=== PATIENT | male | born 1975 | race Caucasian/White ===

== ENCOUNTER 2021-12-26 10:50 | Outpatient (CLI) | payer OTHER ==
[~2021-12-26 10:50] MED LIST: METOPROLOL SUCC50 MG
== END 2021-12-26 11:00 | disposition home or self-care (01) ==
LOC: LAB 10:50
PROVIDERS: ATTEND Urology
DX: R97.20 Elevated prostate specific antigen [PSA] (principal)

== ENCOUNTER 2022-01-20 07:28 | Outpatient (CLI) | payer OTHER | END 2022-01-20 07:34 | disposition home or self-care (01) | LOC: SONOGRAMA 07:28 | PROVIDERS: ATTEND Urology | DX: R97.20 Elevated prostate specific antigen [PSA] (principal) ==

== ENCOUNTER → 2022-04-21 | Outpatient (CLI) | payer OTHER | END | disposition home or self-care (01) | LOC: NUCLEAR 04-07 06:00 | PROVIDERS: ATTEND Internal Medicine Cardiovascular Disease | DX: I11.9 Hypertensive heart disease without heart failure (principal) | CPT/HCPCS: 78452; 93017; A9500 ==

== ENCOUNTER 2023-11-19 21:16 | Emergency (ER) | payer OTHER ==
[~2023-11-19] VITALS: Ht 160 cm; Wt 67.1 kg
[2023-11-20 00:04] LABS: PH,URINE 5.5 (5.0-8.0); URINE APPEARANCE Clear; URINE BILIRRUBIN Negative (NEGATIVE); URINE BLOOD Negative; URINE COLOR Yellow; URINE GLUCOSE Negative (NEGATIVE); URINE LEUKOCYTE Negative; URINE NITRATE Negative; URINE PROTEIN Negative (NEGATIVE); URINE UROBILINOGEN 0.2 E.U./dl
[2023-11-20 00:08] LABS: URINE BACTERIA 7.5 uL (0.0-1933); URINE EPITHELIAL CELLS 1.5 uL (0.0-38.8); URINE RBC 2.1 uL (0.0-20.8); URINE WBC 3.2 uL (0.0-23.2)
[2023-11-20 00:22] LABS: HEMATOCRIT 41.9 % (39.0-48.0); HEMOGLOBIN 14.5 g/dL (13-16.00); MEAN CELL VOLUME 90.6 fL (80.0-100.00); MEAN CORPUSCULAR HEMOGLOBIN 31.3 pg (27.00-32.0); MEAN CORPUSCULAR HGB CONC 34.5 g/dl (32.0-36.0); PLATELET COUNT 254 K/uL (150-450); RED BLOOD COUNT 4.63 M/uL (4.00-6.00); RED CELL DISTRIBUTION WIDTH 12.9 % (11.5-14.5)
[2023-11-20 00:27] LABS: CREATININE SERUM 0.77 mg/dL (0.70-1.30); GFR 108.29; POTASSIUM 3.64 mEq/L (3.5-5.1)
== END 2023-11-20 04:09 | disposition home or self-care (01) ==
LOC: ER 21:17
PROVIDERS: General Practice
DX: K52.89 Other specified noninfective gastroenteritis and colitis (principal); Z91.013 Allergy to seafood; K30 Functional dyspepsia; Z20.822 Contact with and (suspected) exposure to COVID-19

== ENCOUNTER 2024-09-01 13:14 | Emergency (ER) | payer OTHER ==
[~2024-09-01] VITALS: Ht 157.5 cm; Wt 67.1 kg
[2024-09-01] MEDS ORDERED: VASOTEC20 MG PO (13:40)
[2024-09-01] MEDS ORDERED: HYDROCHLOROTH12.5 M2 PO (13:40)
[2024-09-01] MEDS ORDERED: 0.9 % SODIUM CHLORIDE 500 ML IV ONE (14:45)
[2024-09-01] MEDS ORDERED: ONDANSETRON HCL 2 MG/ML VIAL IV ONE (14:45)
[2024-09-01] MEDS ORDERED: FAMOTIDINE/PF 20 MG/2 ML VIAL IV ONE (14:45)
[2024-09-01] MEDS ORDERED: LABETALOL HCL 100 MG/20 ML ML IV ONE (14:45)
[2024-09-01 15:59] LABS: HEMATOCRIT 43.9 % (39.0-48.0); HEMOGLOBIN 15.4 g/dL (13-16.00); MEAN CELL VOLUME 92.5 fL (80.0-100.00); MEAN CORPUSCULAR HEMOGLOBIN 32.4 pg (27.00-32.0); PLATELET COUNT 368 K/uL (150-450); RED BLOOD COUNT 4.75 M/uL (4.00-6.00); RED CELL DISTRIBUTION WIDTH 13.1 % (11.5-14.5)
[2024-09-01 16:22] LABS: ALBUMIN 4.3 gm/dL (3.4-5.0); BILIRUBIN TOTAL 0.72 mg/dL (0.3-1.2); CALCIUM 9.6 mg/dL (8.5-10.1); CREATININE SERUM 0.91 mg/dL (0.70-1.30); GFR 89.3; POTASSIUM 4.2 mEq/L (3.5-5.1); TOTAL PROTEIN 8.3 gm/dL (6.4-8.2)
== END 2024-09-01 18:32 ==
LOC: ER 13:16
PROVIDERS: Nurse Practitioner Family
DX: I10 Essential (primary) hypertension (principal); Z91.013 Allergy to seafood

== ENCOUNTER 2025-09-08 07:51 | Emergency (ER) | payer OTHER ==
[~2025-09-08] VITALS: Ht 162.6 cm; Wt 66.7 kg
[~2025-09-08 07:51] MED LIST changes: +HYDROCHLOROTH12.5 M2 PO; +VASOTEC20 MG PO
[2025-09-08 08:07] VITALS: BP 137/80; O2SAT 96
[2025-09-08] MEDS ORDERED: ORPHENADRINE CITRATE 30 MG/ML AMPUL IM ONE (08:30)
[2025-09-08] MEDS ORDERED: ACETAMINOPHEN 500 MG GEL..CAP PO ONE ×2 (08:30→08:33)
[2025-09-08] MEDS ORDERED: DEXAMETHASONE SODIUM PHOSPHATE 4 MG/ML VIAL IM ONE (08:30)
[2025-09-08] MEDS ORDERED: DEXAMETHASONE SODIUM PHOSPHATE 4 MG/ML VIAL ONE (08:33)
[2025-09-08] MEDS ORDERED: ORPHENADRINE CITRATE 30 MG/ML AMPUL ONE (08:33)
[2025-09-08 08:57] LABS: BASO % 0.9 % (0.1-1.2); EOS # 0.05 (0.04-0.54); EOS % 0.9 % (0.7-7.0); LYMPH # 1.41 (1.18-3.74); LYMPH % 25.3 % (19.3-53.1); MEAN PLATELET VOLUME 8.90 fl (9.4-12.4); MONO # 0.49 (0.24-0.82); MONO % 8.8 % (4.7-12.5); NEUT # 3.54 (1.56-6.13); NEUT % 63.6 % (34.0-71.1); RED CELL DISTRIBUTION WIDTH 12.2 % (11.6-14.4)
[2025-09-08 09:20] LABS: ALT/SGPT 25.0 U/L (12-78); AST/SGOT 21.0 U/L (15-37); BILIRUBIN TOTAL 0.97 mg/dL (0.3-1.2); BUN CREA RATIO 19.0 (7.0-25.0); CREATININE SERUM 0.84 mg/dL (0.70-1.30); GFR 97.53; GLOBULINA 4.4 G/DL (2.4-3.5); GLUCOSE FASTING 108.0 mg/dL (65-100); OSMOLALITY SERUM 276.0 MOSM/KG (275-295)
[2025-09-08] MEDS ORDERED: PEPCID AC20 MG PO (13:16)
[2025-09-08] MEDS ORDERED: TRAMADOL HCL E100 M1 PO (13:16)
== END 2025-09-08 13:24 | disposition home or self-care (01) ==
LOC: ER 07:51
PROVIDERS: General Practice
DX: S42.001A Fracture of unspecified part of right clavicle, initial encounter for closed fracture (principal); M25.511 Pain in right shoulder; S09.8XXA Other specified injuries of head, initial encounter; W18.39XA Other fall on same level, initial encounter; Y93.89 Activity, other specified; Y92.018 Other place in single-family (private) house as the place of occurrence of the external cause; I10 Essential (primary) hypertension

== ENCOUNTER 2025-09-14 07:00 | Day surgery (SDC) | payer OTHER ==
[2025-09-10 10:38] VITALS: BP 150/103
[2025-09-10 10:39] VITALS: BP 140/100
[2025-09-10 11:03] LABS: BASO % 0.7 % (0.1-1.2); EOS # 0.04 (0.04-0.54); EOS % 0.7 % (0.7-7.0); LYMPH # 1.65 (1.18-3.74); LYMPH % 30.8 % (19.3-53.1); MEAN PLATELET VOLUME 9.20 fl (9.4-12.4); MONO # 0.47 (0.24-0.82); MONO % 8.8 % (4.7-12.5); NEUT # 3.12 (1.56-6.13); NEUT % 58.4 % (34.0-71.1); RED CELL DISTRIBUTION WIDTH 12.3 % (11.6-14.4)
[2025-09-10 11:07] LABS: URINE APPEARANCE Clear; URINE BILIRRUBIN Negative (NEGATIVE); URINE BLOOD Negative; URINE COLOR Yellow; URINE GLUCOSE Negative (NEGATIVE); URINE KETONE Trace (NEGATIVE); URINE LEUKOCYTE Trace; URINE NITRATE Negative; URINE PROTEIN Trace (NEGATIVE); URINE UROBILINOGEN 1.0 E.U./dl
[2025-09-10 11:10] LABS: URINE RBC 3.8 uL (0.0-20.8)
[2025-09-10 11:14] LABS: COVID-19 AG NEGATIVE (NEGATIVE)
[2025-09-10 11:20] LABS: URINE EPITHELIAL CELLS 1.2 uL (0.0-38.8); URINE WBC 1.6 uL (0.0-23.2)
[2025-09-10 11:21] LABS: URINE BACTERIA 3.6 uL (0.0-1933); URINE CAST 0.14 uL (0.0-1.40)
[2025-09-10 11:47] LABS: ALT/SGPT 39.0 U/L (12-78); AST/SGOT 17.0 U/L (15-37); BILIRUBIN TOTAL 0.84 mg/dL (0.3-1.2); BUN CREA RATIO 31.0 (7.0-25.0); CREATININE SERUM 0.74 mg/dL (0.70-1.30); GFR 112.89; GLOBULINA 3.8 G/DL (2.4-3.5); GLUCOSE FASTING 91.0 mg/dL (65-100); OSMOLALITY SERUM 279.0 MOSM/KG (275-295)
[2025-09-10 11:56] LABS: INR 1.02
[2025-09-10 11:59] LABS: COL EPI 117 SECONDS (82-175)
[~2025-09-14] VITALS: Ht 162.6 cm; Wt 66.7 kg
[~2025-09-14 07:00] MED LIST changes: +PEPCID AC20 MG PO; +TRAMADOL HCL E100 M1 PO
[2025-09-14] MEDS ORDERED: BUPIVACAINE HCL/Mpf 0.5% 10ML VIAL ONE (07:40)
[2025-09-14] MEDS ORDERED: CEFAZOLIN SODIUM 1,000 MG VIAL ONE (07:40)
[2025-09-14] MEDS ORDERED: VANCOMYCIN HCL 1,000 MG VIAL ONE (15:14)
== END 2025-09-14 20:00 | disposition home or self-care (01) ==
LOC: CIR.AMB 07:00
PROVIDERS: ATTEND Orthopaedic Surgery
DX: S42.021A Displaced fracture of shaft of right clavicle, initial encounter for closed fracture (principal)
CPT/HCPCS: 23515; L8699

== ENCOUNTER 2025-09-17 06:29 | Outpatient (CLI) | payer OTHER | END 2025-09-17 06:31 | disposition home or self-care (01) | LOC: LAB 06:29 | PROVIDERS: ATTEND Orthopaedic Surgery | DX: E55.9 Vitamin D deficiency, unspecified (principal); M85.9 Disorder of bone density and structure, unspecified; E56.1 Deficiency of vitamin K ==

== ENCOUNTER 2025-10-14 10:00 | Outpatient (CLI) | payer OTHER | END 2025-10-14 15:11 | disposition home or self-care (01) | LOC: RAD 10:00 | PROVIDERS: ATTEND Orthopaedic Surgery | DX: S42.021D Displaced fracture of shaft of right clavicle, subsequent encounter for fracture with routine healing (principal) ==